=== PATIENT | male | born 1930 | race Caucasian/White ===

== ENCOUNTER → 2017-07-12 | Day surgery (SDC) | payer MEDICARE ==
[2017-07-06 11:37] VITALS: BMI 22.8
[~2017-07-12] MED LIST: LACTATED RINGERS 1,000 ML IV SCH; PROPOFOL 10 MG/ML 20 ML VIAL IV ONE; SODIUM CHLORIDE 0.9% 1,000 ML IV SCH
[2017-07-12 08:45] LABS: Anion Gap 12 mmol/L; Blood Urea Nitrogen 17 mg/dL (9-20); Calcium 8.8 mg/dL (8.4-10.2); Carbon Dioxide 23 mmol/L (22-30); Chloride 104 mmol/L (98-107); Glucose 87 mg/dL (74-99); Non-African American GFR(MDRD) >60 (>60 ml/min/1.73 sqM); Sodium 139 mmol/L (137-145)
[2017-07-12] MEDS: BENZOCAINE SPRAY 1 SPRAY CAN MUCOUS MEM ONE ×2 (08:50→09:13)
[2017-07-12 09:53] VITALS: RESP 18
[2017-07-12 10:41] VITALS: PULSE 66; TEMP 97.6
[2017-07-12 12:04] VITALS: BP 148/79
--- NOTE | 2017-07-12 13:35 | ECHOT ---
TRANSESOPHAGEAL ECHOCARDIOGRAM INDICATIONS: Chronic atrial fibrillation prior to cardioversion. PROCEDURE: After obtaining informed consent, transesophageal echocardiogram was performed in left lateral position using an Omni plane probe. Local and IV sedation were obtained using Xylocaine spray. Local and IV sedation were obtained by the box inspector. The patient tolerated the procedure well without any obvious immediate complications. FINDINGS: 1. Left ventricle has normal size and systolic function. 2. Left atrium appears enlarged. 3. Right atrium and right ventricle are within normal limits. 4. There is no intracardiac thrombus within the left atrial appendage, left atrium, right atrium, right ventricle or left ventricle. 5. Mitral valve is anatomically normal. There is mild mitral regurgitation noted. 6. Aortic valve is a 3-leaflet valve. There is mild aortic regurgitation noted. There is mild tricuspid regurgitation noted. 7. Aorta shows moderate atherosclerotic changes. 8. Interatrial septum, there is no evidence of left to right shunt by color-flow Doppler or [id number] shunt by agitated saline contrast study. CONCLUSION: No intracardiac thrombus. PLAN: Patient will undergo cardioversion. MMODL / IJN: [id number] /
--- NOTE | 2017-07-12 13:41 | CE ---
CARDIAC ELECTROPHYSIOLOGY REPORT CARDIOVERSION NOTE: INDICATION: Chronic atrial fibrillation. After obtaining informed consent, the patient was converted after being adequately anticoagulated with Eliquis with 300 joules of DC current. Initially we attempted with 200 joules without any effect and the second shock has converted him to sinus rhythm. The patient is currently on amiodarone which I am going to continue and also on Eliquis. MMODL / IJN: [id number] /
== END | disposition home or self-care (01) ==
LOC: CATHCVL 07:57
PROVIDERS: ATTEND Internal Medicine Cardiovascular Disease
DX: I48.2 Chronic atrial fibrillation (principal); Z79.01 Long term (current) use of anticoagulants; I08.3 Combined rheumatic disorders of mitral, aortic and tricuspid valves; I10 Essential (primary) hypertension; Z79.899 Other long term (current) drug therapy
CPT/HCPCS: 93312; 93320; 93005; 93325; 92960; 80048; J2704

== ENCOUNTER 2017-09-12 07:25 | Day surgery (SDC) | payer MEDICARE ==
[2017-09-07 08:23] VITALS: BMI 23.7
[~2017-09-12 07:25] MED LIST changes: -LACTATED RINGERS 1,000 ML IV SCH; -PROPOFOL 10 MG/ML 20 ML VIAL IV ONE
[2017-09-12] MEDS ORDERED: SODIUM CHLORIDE 0.9% 500 ML IV ONE (07:35)
[2017-09-12 07:57] VITALS: BP 173/89; PULSE 63; RESP 16; TEMP 97.8
--- NOTE | 2017-09-21 08:10 | CDI ---
Outpatient Documentation Clarification Form Date: 09/21/17 Bicycle Subassembler Name: HENRY Sahu Phone: If you have question, contact Tamiko Rayo Automatic Furnace Operator at [phone] M-F 8:30 am to 6pm. Patient Name: Mor Vanegas Admit Date: 09/12/17 Discharge Date: 09/12/17 ATTENTION: The Clinical Documentation Specialists (CDI) and [facility] Coding Staff appreciate your assistance in clarifying documentation. Please respond to the clarification below the line at the bottom and electronically sign. The CDI & [facility] Coding staff will review the response and follow-up if needed. Please note: Queries are made part of the Legal Health Record. If you have any questions, please contact the author of this message via ITS or call the Automatic Furnace Operator. Dr. Duc Barragan Mr. Vanegas was seen on 09/12/17 for a cardioversion. A diagnosis for this intended procedure has not be documented by a physician. For proper reporting purposes, please clarify a diagnosis for this intended procedure by documenting below. __ MTDD
== END 2017-09-12 08:11 | disposition home or self-care (01) ==
LOC: CATHCVL 07:25
PROVIDERS: ATTEND Internal Medicine Cardiovascular Disease
DX: Z53.8 Procedure and treatment not carried out for other reasons (principal)
CPT/HCPCS: 93005